=== PATIENT | female | born 2000 | race Hispanic/Latino ===

== ENCOUNTER 2024-08-02 23:40 | Emergency (ER) | payer OTHER ==
[~2024-08-02] VITALS: Ht 160 cm; Wt 102.1 kg
[2024-08-02 23:55] VITALS: BP 115/68; PULSE 109; RESP 20; TEMP 98.6
[2024-08-03] MEDS ORDERED: NS 1000ML 1,000 ML ONE (00:06)
[2024-08-03] MEDS ORDERED: MORPHINE SULFATE ONE (00:07)
[2024-08-03] MEDS: NS 1000ML 1,000 ML IV STA (00:10)
[2024-08-03] MEDS: MORPHINE SULFATE IV STA (00:11)
[2024-08-03 00:31] LABS: BASOPHIL % 0.3 % (0.1-1.2); EOSINOPHIL # 0.1 10^3/uL (0.0-0.2); EOSINOPHIL % 1.2 % (0.0-5.0); HEMATOCRIT(ML) 44.2 % (36.0-46.0); HEMOGLOBIN 14.4 g/dL (12.0-15.0); LYMPHOCYTES # 2.49 10^3/uL1 (1.0-4.8); LYMPHOCYTES % 21.3 % (24.0-44.0); MEAN CORP HGB 28.1 pg (26-34); MEAN CORP HGB CONCENTRATION 32.6 g/dL (33-36.5); MEAN CORP VOLUME 86.3 fL (78-100); MONOCYTES # 0.5 10^3/uL (0.3-0.8); MONOCYTES % 4.5 % (5.0-12.0); NEUTROPHIL # 8.5 10^3/uL (1.8-7.7); NEUTROPHILS % 72.4 % (41.0-85.0); PLATELET COUNT 328 10^3/uL (150-400); RED BLOOD CELL 5.12 10^6/uL (4.00-5.20); RED CELL DISTRIBUTION WIDTH 13.7 % (11.5-14.5); WHITE BLOOD CELL 11.7 10^3/uL (4.5-11.0)
[2024-08-03 00:36] LABS: ALBUMIN(ML) 4.5 g/dL (3.4-5.0); ALBUMIN/GLOBULIN RATIO 1.071; ANION GAP 17.8; BUN/CREATININE RATIO 13.92 (10.0-20.0); CALCIUM 9.3 mg/dL (8.4-10.5); CARBON DIOXIDE 23.3 mmol/L (20.0-32); CREATININE SERUM 0.79 mg/dL (0.59-1.40); EST GFR, NON-AA 90.2 (>/=60); POTASSIUM 4.1 mmol/L (3.6-5.2)
[2024-08-03 00:38] LABS: +ADD MANUAL DIFF(NO CHRG) NO
[2024-08-03 01:28] VITALS: BP 110/70; PULSE 90; RESP 20; TEMP 98.6
== END 2024-08-03 01:30 | disposition home or self-care (01) ==
LOC: ER 23:40
DX: K59.00 Constipation, unspecified (principal); R10.13 Epigastric pain
CPT/HCPCS: 99285; 74177; 96374; 96361; 80053; 85025; 86677; 36415; 83690; 84703; J2270; J7030; Q9965